=== PATIENT | female | born 1945 | race Caucasian/White ===

== ENCOUNTER 2022-04-29 04:13 | Emergency (ER) | payer MEDICARE ==
[~2022-04-29] VITALS: Ht 172.7 cm; Wt 101.0 kg
[2022-04-29] VITALS (10 sets, daily range): BP systolic 137–167; BP diastolic 58–124
[2022-04-29] MEDS ORDERED: METOLAZONE2.5 MG PO (15:40)
[2022-04-29] MEDS ORDERED: LISINOPRIL20 M1 PO (15:41)
[2022-04-29] MEDS ORDERED: ANORO ELLIPTA 61 AER IN (15:41)
[2022-04-29] MEDS ORDERED: PROTONIX40 M2 PO (15:42)
[2022-04-29] MEDS ORDERED: BACLOFEN10 MG PO (15:42)
[2022-04-29] MEDS ORDERED: LEVOTHYROXIN75 MCG PO (15:42)
[2022-04-29] MEDS ORDERED: CRESTOR5 MG PO (15:43)
[2022-04-29] MEDS ORDERED: DILTIAZEM HCL180 MG PO (15:44)
[2022-04-29] MEDS ORDERED: K-TAB20 MEQ (15:45)
[2022-04-29] MEDS ORDERED: ALLOPURINOL300 MG PO (15:45)
[2022-04-29] MEDS ORDERED: PEPCID20 MG PO (15:45)
[2022-04-29] MEDS ORDERED: VENLAFAXINE150 MG PO (15:46)
[2022-04-29] MEDS ORDERED: ISOSORB MONO30 MG PO (15:46)
[2022-04-29] MEDS ORDERED: LASIX 40 MG TAB40 MG PO (15:46)
[2022-04-29] MEDS ORDERED: PERCOCET1 TA4 PO (17:29)
== END 2022-04-29 09:00 | disposition home or self-care (01) ==
LOC: ED 04:13
DX: J44.9 Chronic obstructive pulmonary disease, unspecified (principal); Z99.81 Dependence on supplemental oxygen

== ENCOUNTER 2022-04-29 10:59 | Observation (INO) | payer MEDICARE ==
[2022-04-29] VITALS (18 sets, daily range): BP systolic 149–193; BP diastolic 62–95
[~2022-04-29] VITALS: Ht 172.7 cm; Wt 99.0 kg
[2022-04-29 11:23] LABS: HEMATOCRIT 41.5 % (37.0-47.0); HEMOGLOBIN 13.9 g/dl (12.0-16.0); IMMATURE GRANULOCYTES 0.5 % (0.0-5.0); MEAN CELL VOLUME 92.6 fL CALC (80.0-100.0); MEAN CORPUSCULAR HGB CONC 33.5 g/dL CAL (32.0-36.0); NEUT# 8.43 thou/uL (2.00-7.15); RED BLOOD COUNT 4.48 mill/uL (4.20-5.60); RED CELL DISTRI WIDTH 14.7 % (11.5-15.5)
[2022-04-29 11:51] LABS: ALBUMIN 4.8 g/dL (3.2-5.0); ALKALINE PHOSPHATASE 56 u/l (38-126); ANION GAP 13 (6-22 (CALC)); BILIRUBIN, TOTAL 0.6 mg/dL (0.0-1.4); BUN 16 mg/dL (8-23); BUN/CREATININE RATIO 24 (12-20 (CALC)); CARBON DIOXIDE 31 mmol/l (22-30); CHLORIDE 96 mmol/l (95-108); CREATININE 0.6 mg/dL (0.5-1.0); GFR FOR AFR.AMER. > 60 ML/MIN (>=60 (CALC)); GFR OTHER RACES > 60 ML/MIN (>=60 (CALC)); POTASSIUM 3.3 mmol/l (3.5-5.1); SGOT/AST 42 u/l (9-36); SODIUM 137 mmol/l (137-146); TOTAL PROTEIN 8.1 g/dL (6.3-8.2)
[2022-04-29] MEDS ORDERED: METOLAZONE2.5 MG PO (15:40)
[2022-04-29] MEDS ORDERED: LISINOPRIL20 M1 PO (15:41)
[2022-04-29] MEDS ORDERED: ANORO ELLIPTA 61 AER IN (15:41)
[2022-04-29] MEDS ORDERED: BACLOFEN10 MG PO (15:42)
[2022-04-29] MEDS ORDERED: PROTONIX40 M2 PO (15:42)
[2022-04-29] MEDS ORDERED: LEVOTHYROXIN75 MCG PO (15:42)
[2022-04-29] MEDS ORDERED: CRESTOR5 MG PO (15:43)
[2022-04-29] MEDS ORDERED: DILTIAZEM HCL180 MG PO (15:44)
[2022-04-29] MEDS ORDERED: PEPCID20 MG PO (15:45)
[2022-04-29] MEDS ORDERED: ALLOPURINOL300 MG PO (15:45)
[2022-04-29] MEDS ORDERED: K-TAB20 MEQ (15:45)
[2022-04-29] MEDS ORDERED: LASIX 40 MG TAB40 MG PO (15:46)
[2022-04-29] MEDS ORDERED: VENLAFAXINE150 MG PO (15:46)
[2022-04-29] MEDS ORDERED: ISOSORB MONO30 MG PO (15:46)
[2022-04-29] MEDS ORDERED: PERCOCET1 TA4 PO (17:29)
[2022-04-30 04:02] VITALS: BP 154/53
[2022-04-30 06:30] VITALS: BP 153/55
[2022-04-30 09:48] LABS: ANION GAP 12 (6-22 (CALC)); BUN 15 mg/dL (8-23); BUN/CREATININE RATIO 24 (12-20 (CALC)); CARBON DIOXIDE 30 mmol/l (22-30); CHLORIDE 94 mmol/l (95-108); CREATININE 0.6 mg/dL (0.5-1.0); GFR FOR AFR.AMER. > 60 ML/MIN (>=60 (CALC)); GFR OTHER RACES > 60 ML/MIN (>=60 (CALC)); MAGNESIUM 1.6 mg/dL (1.6-2.3); POTASSIUM 2.9 mmol/l (3.5-5.1); SODIUM 134 mmol/l (137-146)
[2022-04-30 09:52] VITALS: BP 144/61
[2022-04-30 14:32] VITALS: BP 109/42
[2022-04-30 19:33] VITALS: BP 134/62
[2022-05-01 00:21] VITALS: BP 130/57
[2022-05-01 04:52] VITALS: BP 149/60
[2022-05-01 04:56] LABS: ANION GAP 14 (6-22 (CALC)); BUN 26 mg/dL (8-23); BUN/CREATININE RATIO 36 (12-20 (CALC)); CARBON DIOXIDE 30 mmol/l (22-30); CHLORIDE 93 mmol/l (95-108); CREATININE 0.7 mg/dL (0.5-1.0); GFR FOR AFR.AMER. > 60 ML/MIN (>=60 (CALC)); GFR OTHER RACES > 60 ML/MIN (>=60 (CALC)); MAGNESIUM 1.7 mg/dL (1.6-2.3); POTASSIUM 3.4 mmol/l (3.5-5.1); SODIUM 133 mmol/l (137-146)
[2022-05-01 06:22] VITALS: BP 138/51
[2022-05-01 10:13] VITALS: BP 140/59
[2022-05-01 14:22] VITALS: BP 107/41
[2022-05-01 19:16] VITALS: BP 135/60
[2022-05-02] VITALS (7 sets, daily range): BP systolic 137–149; BP diastolic 53–63
[2022-05-02 06:53] LABS: ANION GAP 13 (6-22 (CALC)); BUN 28 mg/dL (8-23); BUN/CREATININE RATIO 37 (12-20 (CALC)); CARBON DIOXIDE 30 mmol/l (22-30); CHLORIDE 95 mmol/l (95-108); CREATININE 0.8 mg/dL (0.5-1.0); GFR FOR AFR.AMER. > 60 ML/MIN (>=60 (CALC)); GFR OTHER RACES > 60 ML/MIN (>=60 (CALC)); MAGNESIUM 1.9 mg/dL (1.6-2.3); POTASSIUM 3.4 mmol/l (3.5-5.1); SODIUM 134 mmol/l (137-146)
[2022-05-03 03:42] VITALS: BP 172/65
[2022-05-03 05:30] LABS: ANION GAP 16 (6-22 (CALC)); BUN 29 mg/dL (8-23); BUN/CREATININE RATIO 38 (12-20 (CALC)); CARBON DIOXIDE 27 mmol/l (22-30); CHLORIDE 97 mmol/l (95-108); CREATININE 0.8 mg/dL (0.5-1.0); GFR FOR AFR.AMER. > 60 ML/MIN (>=60 (CALC)); GFR OTHER RACES > 60 ML/MIN (>=60 (CALC)); POTASSIUM 3.6 mmol/l (3.5-5.1); SODIUM 136 mmol/l (137-146)
[2022-05-03 07:18] VITALS: BP 145/70
[2022-05-03 14:41] VITALS: BP 132/70
[2022-05-03 16:40] VITALS: BP 124/54
[2022-05-03 16:44] VITALS: BP 137/78
[2022-05-03 19:46] VITALS: BP 150/65
[2022-05-04 00:47] VITALS: BP 136/56
[2022-05-04 05:02] VITALS: BP 158/73
[2022-05-04 06:44] VITALS: BP 132/58
[2022-05-04 08:16] VITALS: BP 132/58
[2022-05-04] MEDS ORDERED: MUCINEX600 MG PO (12:08)
[2022-05-04] MEDS ORDERED: PERCOCET1 TA4 PO (12:08)
[2022-05-04] MEDS ORDERED: PREDNISONE10 MG PO (12:08)
== END 2022-05-04 16:52 ==
LOC: ED 10:59 → ED-I 12:20 → ED 13:15 → MS2 13:16
PROVIDERS: Family Medicine; ADMIT Internal Medicine; ATTEND Internal Medicine
DX: J44.1 Chronic obstructive pulmonary disease with (acute) exacerbation (principal); J96.21 Acute and chronic respiratory failure with hypoxia; I11.0 Hypertensive heart disease with heart failure; I50.9 Heart failure, unspecified; E87.6 Hypokalemia; K21.9 Gastro-esophageal reflux disease without esophagitis; M10.9 Gout, unspecified; F41.9 Anxiety disorder, unspecified; F32.A Depression, unspecified; M54.9 Dorsalgia, unspecified; G89.29 Other chronic pain; E66.9 Obesity, unspecified; Z99.81 Dependence on supplemental oxygen; Z59.1 Inadequate housing; Z85.3 Personal history of malignant neoplasm of breast; Z20.822 Contact with and (suspected) exposure to COVID-19
CPT/HCPCS: J1650